=== PATIENT | male | born 1955 | race Caucasian/White ===

== ENCOUNTER 2022-01-08 11:12 | Day surgery (SDC) | payer BC, OTHER ==
[~2022-01-08 11:12] MED LIST: Lactated Ringers 1,000 ML IV SCH; Lidocaine 1%/Sod Bicarbonate in NS 8.4% 1 ML Syringe IDERM PRN; Sodium Chloride 0.9% 10 ML Syringe FLUSH PRN; Sodium Chloride 0.9% 10 ML Syringe FLUSH SCH
[2022-01-08] MEDS ORDERED: Bupivacaine 0.25% 10 ML SDV ONE (13:24)
[2022-01-08] MEDS ORDERED: Lidocaine 1% 30 ML SDV ONE (13:24)
[2022-01-08] MEDS ORDERED: Triamcinolone Acetonide 40 MG/ML 1 ML SDV ONE (13:24)
[2022-01-08] MEDS ORDERED: Midazolam 1 MG/ML 2 ML SDV ONE (13:34)
[2022-01-08] MEDS ORDERED: fentaNYL 100 MCG/2 ML SDV ONE (13:34)
[2022-01-08] MEDS ORDERED: Lidocaine 1% 4 ML ONE (13:35)
[2022-01-08] MEDS ORDERED: Propofol 200 MG/20 ML SDV ONE (13:36)
== END 2022-01-08 15:35 | disposition home or self-care (01) ==
LOC: JD.SDS 11:12
PROVIDERS: ATTEND Orthopaedic Surgery
DX: G56.13 Other lesions of median nerve, bilateral upper limbs (principal); G56.01 Carpal tunnel syndrome, right upper limb; I10 Essential (primary) hypertension; G43.909 Migraine, unspecified, not intractable, without status migrainosus; Z87.891 Personal history of nicotine dependence; Z79.899 Other long term (current) drug therapy; Z79.82 Long term (current) use of aspirin; Z98.890 Other specified postprocedural states
CPT/HCPCS: 20526; 64721; J2250; J2704; J3010; J3301; J3490; J7120; 01810

== ENCOUNTER 2022-12-01 08:24 | Day surgery (SDC) | payer BC ==
[2022-12-01] MEDS: Lactated Ringers 1,000 ML IV SCH ×2 (08:19→13:15)
[~2022-12-01 08:24] MED LIST changes: +Acetaminophen 325 MG Tab PO SCH; -Lactated Ringers 1,000 ML IV SCH; +Morphine 8 MG, EPINEPHrine 0.3 MG, Cefuroxime 750 MG, Ketorolac 30 MG, Sodium Chloride ... PRN; +Pregabalin 25 MG Cap PO SCH; +oxyCODONE ER 10 MG TAB.ER PO SCH
[2022-12-01] MEDS ORDERED: ceFAZolin 2 GM Vial ONE (08:29)
[2022-12-01] MEDS ORDERED: Ondansetron 4 MG/2 ML SDV ONE (08:29)
[2022-12-01] MEDS ORDERED: Propofol 200 MG/20 ML SDV ONE (08:29)
[2022-12-01] MEDS ORDERED: fentaNYL 100 MCG/2 ML SDV ONE (08:29)
[2022-12-01] MEDS ORDERED: Midazolam 1 MG/ML 2 ML SDV ONE (08:29)
[2022-12-01] MEDS ORDERED: Ketorolac 30 MG/ML SDV ONE (08:29)
[2022-12-01] MEDS ORDERED: Vancomycin 1 GM SDV ONE (09:19)
[2022-12-01] MEDS ORDERED: Tranexamic Acid 1,000 MG/10 ML Vial ONE (09:19)
[2022-12-01] MEDS ORDERED: Lactated Ringers 1,000 ML ONE (11:13)
[2022-12-01] MEDS ORDERED: Phenylephrine HCl In 0.9% NaCl 1 MG/10 ML Vial ONE (11:30)
[2022-12-01] MEDS ORDERED: ePHEDrine 50 MG/ML SDV ONE (11:30)
[2022-12-01] MEDS ORDERED: Ondansetron 4 MG/2 ML SDV IVPUSH PRN (11:36)
[2022-12-01] MEDS ORDERED: HYDROmorphone 0.5 MG/0.5 ML Syringe IVPUSH PRN (11:36)
[2022-12-01] MEDS ORDERED: fentaNYL 100 MCG/2 ML SDV IVPUSH PRN (11:36)
[2022-12-01] MEDS ORDERED: oxyCODONE 5 MG Tab PO PRN (14:00)
== END 2022-12-01 15:07 | disposition home or self-care (01) ==
LOC: JD.SDS 08:24
PROVIDERS: ATTEND Orthopaedic Surgery
DX: M16.11 Unilateral primary osteoarthritis, right hip (principal); I10 Essential (primary) hypertension; E78.5 Hyperlipidemia, unspecified; C61 Malignant neoplasm of prostate; G43.909 Migraine, unspecified, not intractable, without status migrainosus; F17.210 Nicotine dependence, cigarettes, uncomplicated; Z79.82 Long term (current) use of aspirin; Z98.890 Other specified postprocedural states; Z79.899 Other long term (current) drug therapy
CPT/HCPCS: 0055T; 27130; 36415; 73501; 86850; 86900; 86901; 87641; 97110; 97116; 97161; A9270; C1713; C1776; J0171; J0690; J0697; J1885; J2250; J2270; J2405; J2704; J3010; J3370; J7120; 01214; J3490

== ENCOUNTER 2023-06-22 06:00 | Day surgery (SDC) | payer MEDICARE, OTHER ==
[~2023-06-22 06:00] MED LIST changes: -Acetaminophen 325 MG Tab PO SCH; +Lactated Ringers 1,000 ML IV SCH; -Lidocaine 1%/Sod Bicarbonate in NS 8.4% 1 ML Syringe IDERM PRN; -Morphine 8 MG, EPINEPHrine 0.3 MG, Cefuroxime 750 MG, Ketorolac 30 MG, Sodium Chloride ... PRN; -Pregabalin 25 MG Cap PO SCH; -oxyCODONE ER 10 MG TAB.ER PO SCH
[2023-06-22] MEDS ORDERED: Bupivacaine 0.25% 10 ML SDV ONE (06:05)
[2023-06-22] MEDS ORDERED: Lidocaine 1% 10 ML MDV ONE (06:05)
[2023-06-22] MEDS ORDERED: fentaNYL 100 MCG/2 ML SDV IVPUSH PRN (06:23)
[2023-06-22] MEDS ORDERED: Ondansetron 4 MG/2 ML SDV IVPUSH PRN (06:23)
[2023-06-22] MEDS ORDERED: Propofol 200 MG/20 ML SDV ONE ×2 (06:32→06:50)
[2023-06-22] MEDS ORDERED: fentaNYL 100 MCG/2 ML SDV ONE (06:32)
[2023-06-22] MEDS ORDERED: Midazolam 1 MG/ML 2 ML SDV ONE (06:32)
[2023-06-22] MEDS ORDERED: Lidocaine 1% 2 ML ONE (06:32)
[2023-06-22] MEDS ORDERED: ceFAZolin 2 GM Vial ONE (06:50)
== END 2023-06-22 08:56 | disposition home or self-care (01) ==
LOC: JD.SDS 06:00
PROVIDERS: ATTEND Orthopaedic Surgery
DX: G56.02 Carpal tunnel syndrome, left upper limb (principal); G89.29 Other chronic pain; I10 Essential (primary) hypertension; E78.49 Other hyperlipidemia; M18.11 Unilateral primary osteoarthritis of first carpometacarpal joint, right hand; M19.042 Primary osteoarthritis, left hand; G43.909 Migraine, unspecified, not intractable, without status migrainosus; F17.220 Nicotine dependence, chewing tobacco, uncomplicated; F17.290 Nicotine dependence, other tobacco product, uncomplicated; Z79.899 Other long term (current) drug therapy; Z79.1 Long term (current) use of non-steroidal anti-inflammatories (NSAID)
CPT/HCPCS: 01810; J0690; J2250; J2704; J3010; J3490; J7120

== ENCOUNTER 2024-06-28 13:09 | Emergency (ER) | payer MEDICARE, OTHER ==
[2024-06-28] MEDS: Sodium Chloride 0.9% 1,000 ML IV SCH (14:34)
[2024-06-28] MEDS: Sodium Chloride 0.9% 10 ML Syringe FLUSH PRN (14:34)
[2024-06-28 14:40] LABS: BASOPHILS ABSOLUTE AUTO 0.1 K/mm3 (0.0-0.2); BASOPHILS PERCENT AUTO 0.8 % (0.0-1.0); EOSINOPHILS ABSOLUTE AUTO 0.3 K/mm3 (0.0-0.4); EOSINOPHILS PERCENT AUTO 3.3 % (0.0-6.0); HEMATOCRIT 42.8 % (42.0-52.0); HEMOGLOBIN 14.5 gm/dl (14.0-18.0); IMMATURE GRAN ABSOLUTE AUTO 0.09 K/mm3 (0.00-0.05); LYMPHOCYTES ABSOLUTE AUTO 1.6 K/mm3 (1.0-4.8); MEAN CORPUSCULAR HEMOGLOBIN 31.7 pg (28.0-32.0); MEAN CORPUSCULAR HGB CONC 33.9 g/dl (32.0-36.0); MEAN CORPUSCULAR VOLUME 93.7 fl (83.0-99.0); MEAN PLATELET VOLUME 9.4 fl (9.4-12.4); MONOCYTES ABSOLUTE AUTO 0.8 K/mm3 (0.0-0.8); MONOCYTES PERCENT AUTO 8.9 % (0.0-8.0); NEUTROPHILS ABSOLUTE AUTO 6.2 K/mm3 (1.8-7.7); PLATELET COUNT,PLT 204 K/mm3 (150-400); RED BLOOD CELL COUNT 4.57 M/mm3 (4.52-5.90); WHITE BLOOD CELL COUNT,WBC 9.09 K/mm3 (3.9-11.3)
[2024-06-28 15:17] LABS: A/G RATIO 1.4 (1-2); ALBUMIN 3.5 g/dl (3.4-5.0); ANION GAP 15.1 (5-15); BILIRUBIN TOTAL 0.5 mg/dL (0.2-1.0); BUN/CREATININE RATIO 21.1 (14-18); CALCIUM 8.6 mg/dL (8.5-10.1); CREATININE 0.9 mg/dL (0.7-1.3); EST CRCL DRUG DOSING (CG) 80.94 mL/min; PROTEIN TOTAL,TP 6.1 g/dl (6.4-8.2)
[2024-06-28 15:21] LABS: POTASSIUM,K 4.1 mEq/L (3.5-5.1)
== END 2024-06-28 16:05 | disposition home or self-care (01) ==
LOC: JD.ED 13:09
DX: E86.0 Dehydration (principal); R42 Dizziness and giddiness; I10 Essential (primary) hypertension; E78.00 Pure hypercholesterolemia, unspecified; Z79.899 Other long term (current) drug therapy
CPT/HCPCS: 36415; 80053; 82947; 83735; 84484; 85025; 93005; 93246; 96360; 99284; J3490; J7030; 93010; 99282